=== PATIENT | male | born 1965 | race Caucasian/White ===

== ENCOUNTER 2024-05-27 08:32 | Outpatient (CLI) | payer OTHER, SELFPAY ==
--- NOTE | ~2024-05-27 | PE_ITS ---
EXAMINATION: PET skull to mid thigh DATE: 05/27/2024 11:52 INDICATION: Solitary pulmonary nodule TECHNIQUE: Blood glucose level was 84 mg/dL. 9.823 mCi of 18-fluorodeoxyglucose (18-FDG) was administ ered i.v. Low dose computed tomography (CT) images were acquired from the base of the brain to the pr oximal thighs for attenuation correction and anatomic localization. Positron emission tomography (PET ) images were acquired in the same distribution beginning 59 minutes after injection. Images includin g fused PET/CT images were reconstructed in axial, coronal, and sagittal planes. Automated exposure c ontrol technique was employed. The dose-length product was 764.52mGy-cm. COMPARISON: None FINDINGS: Head/neck: There is symmetric increased activity in the oral cavity, palatine tonsils, parotid glands, submandi bular glands, scalene muscles, laryngeal muscles and ocular muscles without CT correlate, likely phys iologic. No pathologically enlarged cervical lymphadenopathy or suspicious foci of increased FDG upta ke in the visualized head or neck. Chest: Severe upper lung predominant emphysema. 5 mm nodule in the posterior segment of the right upper lobe with minimal FDG uptake with maximal SUV of 1.3. 8 x 5 mm possible anterior segment of the right upp er lobe without evident FDG uptake. Linear discoid atelectasis in the lingula and right middle lobe. Heart size is normal. No pericardial effusion. Atherosclerotic coronary artery calcifications. Thorac ic aorta is normal in caliber. No pathologically enlarged or FDG avid thoracic lymphadenopathy. Abdomen/pelvis/proximal thighs: Physiologic renal accumulation and excretion of FDG activity in the kidneys, bladder and along portio ns of ureters. 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 Normal degree and heterogenous pattern of increased uptake throughout the liver without radiologi c correlate or dominant FDG avid lesion. The gallbladder, pancreas, spleen and bilateral adrenal glan ds are normal. Mild uptake scattered throughout the bowels without radiologic correlate, also likely physiologic. No free intraperitoneal gas or fluid. No other abnormal foci of increased FDG uptake or pathologically enlarged lymphadenopathy in the abdomen, pelvis or proximal thighs. Musculoskeletal: Internal fixation with plate and screw fixation along the proximal left humerus. There is likely infl ammatory mild FDG uptake in the soft tissues surrounding the tip of one of the fixation screws which projects beyond the humeral cortex. T10 and L3 compression fractures. S1 is partially lumbarized. The re is mild increased uptake overlying the bilateral greater trochanters consistent with trochanteric bursitis. There is mildly increased likely physiologic muscular activity without radiologic correlate at some of the musculature at the bilateral hips most prominent at the left quadratus femoris muscle . No discrete lytic, blastic or abnormally FDG avid bone lesions. IMPRESSION: 1. Minimal FDG uptake with maximal SUV of 1.3 associated with a 5 mm nodule in the right upper lobe w hich is equivocal for malignant, infectious or inflammatory etiology. Patient would not currently be a biopsy candidate given to small size of the nodule or if the patient requires supplemental oxygen a t baseline given the severity of the emphysema. Would recommend continued follow-up with low-dose non contrast chest CT in 3-6 months. 2. No other lesions suspicious for malignancy or metastatic disease. 3. Developmental variant horseshoe kidney. Reviewed, dictated and finalized at location A. IMPRESSION: 1. Minimal FDG uptake with maximal SUV of 1.3 associated with a 5 mm nodule in the right upper lobe which is equivocal for malignant, infectiou
[2024-05-27 09:30] LABS: Glucose Point of Care 84 mg/dl (65-105)
== END 2024-05-27 08:33 | disposition home or self-care (01) ==
LOC: ANHIMG 08:34
PROVIDERS: PCP Nurse Practitioner Family; Visit Provider Nurse Practitioner Family
DX: R91.1 Solitary pulmonary nodule (principal); Q63.1 Lobulated, fused and horseshoe kidney
CPT/HCPCS: 78815; A9552

== ENCOUNTER 2024-06-23 12:38 | Outpatient (CLI) | payer OTHER, SELFPAY ==
--- NOTE | 2024-06-23 13:54 | ECHO_ITS ---
Patient Info Name: Dario Pina Age: 58 years : 1965 Gender: Male Ht: 69 in Wt: 140 lbs BSA: 1.75 m2 HR: 70 bpm BP: 147 / 90 mmHg Heart Rhythm: Sinus Rhythm Technical Quality: Fair Exam Date: 06/23/2024 2:09 PM Exam Location: Echo Lab Patient Status: Outpatient Admit Date: 06/23/2024 Staff Ordering Physician: Sharon Vasquez MD Regional Safety Manager: Lucio Veras RDCS Attending Provider: Sharon Vasquez MD Referring Physician: Christina MARTINES; Exam Type: CA echo doppler color flow Study Info Indications - other forms of dyspnea Complete two-dimensional, color flow and Doppler transthoracic echocardiogram is performed. Summary 1. Complete two-dimensional, color flow and Doppler transthoracic echocardiogram is performed. 2. Left ventricular chamber dimension is normal. 3. Left ventricular systolic function is normal, estimated at 60-65%. 4. The left ventricular diastolic function is abnormal. 5. E/e' 13 is mildly elevated. 6. There is mild aortic valve sclerosis. 7. No pulmonary hypertension, estimated pulmonary arterial systolic pressure is 26 mmHg. Left Ventricle E/e' 13 is mildly elevated. Left ventricular chamber dimension is normal. Left ventricular systolic function is normal, estimated at 60-65%. The left ventricular diastolic function is abnormal. Right Ventricle Right ventricular systolic function is normal and with normal TAPSE 3.0 cm. Right ventricular chamber dimension is normal. Left Atria Left atrial chamber dimension is normal. Right Atria Right atrial chamber dimension is normal. Aortic Valve The aortic valve is probable trileaflet. There is mild aortic valve sclerosis. There is no aortic valve stenosis. There is no aortic valve regurgitation. Pulmonic Valve There is no pulmonic regurgitation. Mitral Valve There is no mitral valve stenosis. There is no mitral valve regurgitation. Tricuspid Valve There is no tricuspid valve regurgitation. No pulmonary hypertension, estimated pulmonary arterial systolic pressure is 26 mmHg. Pericardium/Pleural There is no pericardial effusion. Inferior Vena Cava Normal inferior vena cava with >50% collapse upon inspiration consistent with normal right atrial pressure, 5 mmHg. Aorta The aortic root size at the sinus of Valsalva is normal. Left Ventricular Outflow Tract Name Value Normal LVOT 2D LVOT Diameter 1.9 cm LVOT Doppler LVOT Peak Velocity 135 cm/s LVOT Peak Gradient 7 mmHg LVOT Mean Gradient 4 mmHg LVOT VTI 27 cm LVOT VTI/AV VTI Ratio 0.8 LVOT Stroke Volume 74 ml LVOT CO 5.6 l/min LVOT CI 3.2 l/min/m2 Pulmonic Valve Name Value Normal PV Doppler PV Peak Velocity 114 cm/s PV Peak G
--- NOTE | 2024-06-24 11:27 | WPDPFTINT ---
PFT Procedure Performed PFT Procedure Performed Spirometry with Pre/Post Bronchodilator Plethysmography (Lung Vol) Diffusing Cap (DLCO) Flow Vol Loop PFT Interpretation DOS: 06/23/2024 REQUESTING: Dr Vasquez REASON FOR TESTING: In PULMONARY FUNCTION TESTS Results are reliable and reproducible. Repeatability of spirometry FEV1 maneuver pre and post bronchodilator is Grade A. the cooking appliance repair technician commented that the patient had difficulty with plethysmography with 4 attempts. Spirometry: The pre-bronchodilator FEV1 is 0.93 L, 27%, severely decreased. The pre-bronchodilator FVC is 3.12 L, 70% predicted, mildly decreased. The FEV1/FVC ratio is 30%, decreased. After bronchodilator, the FEV1 is 1.02 L, 29%, +10% The FVC is 3.64 L, 81%, +17%. This is a significant response. The FEV1/FVC ratio is 28%. Lung volumes: The total lung capacity is 8.91 L, 132%, increased, consistent with hyperinflation. The residual volume is 5.53 L, 253%, consistent with severe air trapping. The RV/TLC is 62%, increased. Airway resistance is increased. Diffusion: DLCO is 6.9, 25%, severely decreased. The DLCO/VA is 1.46, 34%, severely decreased. Flow volume loop: The flow volume loop shows severe coving of the expiratory limb. IMPRESSION: This study shows a severe obstructive ventilatory impairment with a good response to bronchodilator, mild hyperinflation with severe air trapping and a severe diffusion impairment. Sharon Vasquez MD
--- NOTE | 2024-06-24 11:33 | WPDSIXMINUTE ---
Six Minute Walk Procedure Procedure Performed Pulmonary Stress Test (6 min walk) Six Minute Walk Six Minute Walk: DATE OF SERVICE: 06/23/2024 REQUESTING: Dr. Vasquez REASON FOR TESTING: Dyspnea SIX MINUTE WALK This test was conducted per ATS guidelines. The patient used oxygen 2 L a minute which is his usual home oxygen flow. He used a walking cane. The initial saturation was 92%, and initial heart rate was 79 beats per minute. The patient walked without stopping, completing 800 ft/243.8 m. The saturation at the end of testing was 92%, and the heart rate was 80 beats per minute. IMPRESSION: This study shows the patient requires 2 liters/minute with walking. Distance walked is less than expected for age. Sharon Vasquez MD
== END 2024-06-23 12:39 | disposition home or self-care (01) ==
LOC: ANHPFT 12:41
PROVIDERS: PCP Nurse Practitioner Family; Visit Provider Internal Medicine Critical Care Medicine
DX: R06.09 Other forms of dyspnea (principal); J44.9 Chronic obstructive pulmonary disease, unspecified; I51.89 Other ill-defined heart diseases; I35.8 Other nonrheumatic aortic valve disorders; F17.200 Nicotine dependence, unspecified, uncomplicated
CPT/HCPCS: 93306; 94060; 94726; 94729

== ENCOUNTER 2024-08-26 13:35 | Outpatient (CLI) | payer OTHER, SELFPAY ==
--- NOTE | ~2024-08-26 | CT_ITS ---
EXAMINATION:CT diagnostic chest wo con DATE: 08/26/2024 13:54 INDICATION: Pulmonary nodule. TECHNIQUE: Computed tomography (CT) of the chest was performed without intravenous contrast. Automate d exposure control and iterative reconstruction technique were employed. The dose-length product (DLP ) was 112.42 mGy-cm. COMPARISON: PET/CT 05/27/2024 FINDINGS: There is severe emphysema. There is a 6 mm nodule in right upper lobe. There is a 5 mm nodu le in left upper lobe. There is mild atelectasis bilaterally. There is no pleural effusion. The heart size is normal. There are coronary artery calcifications. There is a trace pericardial effusion. The re is internal fixation of left humerus. There are old left rib fractures. There are chronic compress ion fractures of T10 and L3. IMPRESSION: 1. Pulmonary nodules measuring up to 6 mm, probably benign. Consider noncontrast low-dose chest CT in 6-12 months. 2. Severe emphysema. Reviewed, dictated and finalized at location A. IMPRESSION: 1. Pulmonary nodules measuring up to 6 mm, probably benign. Consider noncontras t low-dose chest CT in 6-12 months. 2. Severe emphysema.
== END 2024-08-26 13:36 | disposition home or self-care (01) ==
PROVIDERS: PCP Nurse Practitioner Family; Visit Provider Internal Medicine Critical Care Medicine
DX: R91.8 Other nonspecific abnormal finding of lung field (principal); J43.9 Emphysema, unspecified; R91.1 Solitary pulmonary nodule
CPT/HCPCS: 71250

== ENCOUNTER 2024-11-23 10:52 | Outpatient (CLI) | payer OTHER, SELFPAY ==
--- NOTE | 2024-11-30 13:41 | WPDSLEEPSTUD ---
Sleep Study Date of Study: 11/23/24 Ordering Provider: Sharon Vasquez MD Interpreting Physician: Dinorah Mendoza DO Sleep Study Type: Polysomnogram Height: 1.73 m Weight: 74.843 kg Body Mass Index: 25.0 Neck Circumference (inches): 16 [place]: 15.5 Reason for Sleep Study Daytime hypersomnia Sleep History The patient is a 59-year-old male with COPD, oxygen dependence and bipolar disorder that had a sleep study ordered by his breaker hand for evaluation of sleep apnea. The patient constantly awakens from sleep short of breath. He denies awakening at night with heartburn, belching or cough. He frequently snores but is never loud enough that others complain. He frequently has trouble sleeping when he has a cold. He rarely wakes up gasping for air throughout the night. He frequently has breathing problems at night observed by himself or others. He frequently sweats excessively at night. He occasionally has heart palpitations or irregular heartbeats during the night. He occasionally falls asleep during the day but never while driving. He rarely experiences loss of muscle tone when extremely emotional. He denies sleep paralysis and hypnagogic/ hypnopompic hallucinations. He denies having trouble at school or work due to sleepiness. He denies feeling afraid of going to sleep. He denies having nightmares. He rarely remembers his dreams. He rarely has thoughts racing through his mind. He denies feeling sad or depressed. He frequently has anxiety. He occasionally has muscular tension. He occasionally notices parts of his body jerk. He denies kicking during the night. He rarely has crawling and aching feelings in his legs but occasionally has leg pain during the night. He denies grinding his teeth during sleep but occasionally awakens with morning jaw pain. He occasionally is bothered by pain during the day and occasionally awakened by pain during the night. He denies waking up feeling stiff in the morning. He denies waking up with sore or achy muscles. He denies waking up with pain in the neck, spine and other joints. He goes to bed at 10:00 p.m. on both weekdays and weekends. It takes him 15 minutes to fall asleep. He wakes up 2-3 times throughout the night to urinate and is able to fall back asleep relatively quickly. He wakes up at 4:00 a.m. on both weekdays and weekends. He typically gets 5-6 hours of sleep per night. he currently lives alone. He denies consuming any caffeinated beverages within 2 hours of bedtime. He denies engaging in physical exercise before bedtime. He will watch television before falling asleep. He will take naps in the afternoon or the evening and they are refreshing. He consumes 4 caffeinated beverages per day. He is a former smoker. He denies alcohol and recreational drug use. [facility] Past Medical History Medical History Anxiety Bipolar 1 disorder Chronic obstructive pulmonary disease Surgical History Surgical History History of surgery on arm (2016) left; has a metal plate in this arm, 2016 Family History Family History Father Hypertension Cerebrovascular accident Heart disease Mother Cerebrovascular accident Hypertension Alzheimer disease Sibling Alcoholism Diabetes mellitus Depression Hypertension Thyroid disorder Grandparent Alzheimer disease Grandparent Hypertension Heart disease Social History Social History Social History: Single, lives alone, sister is is POA for healthcare. Smoked since age 11, 2 ppd x 20 years, the remained 1 ppd= 60 pack year history. Smoked cigarillos a pack/day for a few years. No marijuana or vaping now. He has no kids. 08/13/24 patient somewhat confident with medical forms. Smoking packs per day: 0.25 Smoking cigarettes per day: 5.0 Smoking status: Current some day smoker Alcohol intake: former Alcohol use details: Quit 30 years ago, about 1993, was a heavy drinker. Substance use: never Substance use type: does not use Other substance usage details: no MJ for 18 years, quit 2005 Do You Feel Safe in your Home?: Yes Lack of Transportation: No Lack of Food: Never True Current Housing: I Have Housing Concerned About Future Housing: No Difficulty Paying Gas/Electric Bills: No Difficulty Paying for Meds: YES Currently Unemployed: No Education: Trade/Vocational Certificate Difficulty w/ Childcare or Family Care: No Living arrangements: alone Additional living arrangements comments: No pets. Occupation/Education: occupation Additional occupation/education comments: Maintenance at [employer] Gender identity (if verbalized by the patient): Male Agree to blood products: Yes Medications Home Medications ?Medication ?Instructions ?Recorded ?Confirmed ?Type olanzapine 10 mg tablet 10 mg PO DAILY #90 tabs 04/24/23 09/29/24 Rx paroxetine HCl 40 mg tablet (Paxil) 40 mg PO DAILY #90 tabs 04/24/23 09/29/24 Rx tiotropium bromide 18 mcg capsule 1 cap inhalation DAILY 1 month #60 07/22/24 09/29/24 Rx with inhalation device inhalations nicotine See Rx Instructions transdermal 08/16/24 09/29/24 Rx 21mg/24hr-14mg/24hr-7mg/24hr daily .COMPLEX #56 patches transderm patches,sequentl bupropion HCl 300 mg 24 hr tablet, 300 mg PO DAILY #90 tabs 08/20/24 09/29/24 Rx extended release sertraline 50 mg tablet 50 mg PO DAILY 09/29/24 09/29/24 History fluticasone 250 mcg-salmeterol 50 See Rx Instructions .Route 10/29/24 Rx mcg/dose blistr powdr for .COMPLEX #60 ea inhalation rosuvastatin 5 mg tablet (Crestor) 5 mg PO .HS #90 tabs 11/18/24 Rx albuterol sulfate 90 mcg/actuation See Rx Instructions .Route 11/30/24 Rx aerosol inhaler .COMPLEX #9 grams Sleep Procedure A full night polysomnogram using the [employer] multi-channel system recorded the standard physiologic parameters including EEG, EOG, submentalis EMG, anterior tibialis EMG, EKG, body position, nasal and oral airflow using nasal pressure sensor and thermistor.? Respiratory parameters of chest and abdominal movements were recorded with Respiratory Inductance Plethysmography belts. Oxygen saturation was recorded by pulse oximetry. Video monitoring was also performed. Sleep stages, periodic limb movements, and EEG arousals were scored in 30 second epochs according to the criteria of the AASM Scoring Manual. The Apnea-Hypopnea Index was calculated using [facility] guidelines for definition of hypopnea with 4% O2 desaturations while scoring respiratory events. Sleep Architecture The total recording time was 541.1 minutes.? The total sleep time was 395.5 minutes. Sleep latency was 29.4 minutes. REM latency was 204.0 minutes. Sleep efficiency was 73.1%. The patient had 29 awakenings for an awakening index of 4.4. Wake after sleep onset time was 116.0 minutes. The patient spent 35.5 minutes, 9.0% of total sleep time in Stage N1. The patient spent 277.0 minutes, 70.0% in Stage N2. The patient spent 46.5 minutes, 11.8% in Stage N3. The patient spent 36.5 minutes, 9.2% in Stage REM sleep. Respiratory Analysis The patient had 2 hypopneas and 1 central apnea for an overall Apnea Hypopnea Index of 0.5. The REM Apnea Hypopnea Index was 9.9. The NREM Apnea Hypopnea Index was 0.5. The patient had a Central Apnea Hypopnea Index of 0.2. There was no evidence of Karthik-Richards Respirations. The patient had persistent hypoxemia in the absence of respiratory events. The patient was started on 1 lpm of supplemental oxygen to raise the SpO2 > 88%. Arousals There were 109 total arousals for an arousal index of 16.5. There were 41 spontaneous arousals for an index of 6.2. There were 6 arousals due to respiratory events for an index of 0.9. There were 38 arousals due to periodic limb movements for an index of 5.8.? There were 18 arousals due to isolated limb movements for an index of 2.7. Periodic Limb Movements The patient had 26 isolated limb movements with an index of 3.9. The patient had 230 periodic limb movements with an index of 34.9, which is elevated (normal < 15). Patient had a total of 256 limb movements with a total limb movement index of 38.8. Oximetry Data The patient had an average oxygen saturation of 91.3% in sleep with a minimum oxygen saturation of 84.0% and a maximum oxygen saturation of 97.0%. The patient had 2 oxygen desaturations that were 4% or greater resulting in an Oxygen Desaturation Index of 0.3.? The patient spent 83.9 minutes, 15.8% of total sleep time with an oxygen saturation below 88%. Snoring Profile Snoring was not present during this study. Cardiac Profile The EKG showed normal sinus rhythm. No arrhythmias or premature beats were seen. The patient had an average pulse rate of 66.1 bpm with a minimum pulse of rate of 59.0 bpm and a maximum pulse rate of 150.0 bpm.? EEG Profile No signs of seizure activity seen. Assessment and Plan Assessment and Plan (1) Nocturnal hypoxemia: Code(s): G47.34 - Idiopathic sleep related nonobstructive alveolar hypoventilation Status: Acute Assessment and Plan: The patient wears supplemental oxygen at all times. He came into the sleep lab using 2 lpm of O2. He was weaned down to room air at the beginning of the study. The patient had an overall AHI of 0.5 with desaturation down to 84%. This is not consistent with sleep-disordered breathing. However, supplemental oxygen at 1 lpm was started due to persistent hypoxemia in the absence of respiratory events. His oxygen saturation remained above 92% while on 1 lpm. I recommend that the patient use supplemental oxygen at 1 lpm while sleeping. While the patient had an elevated number of periodic limb movements, the frequency decreased significantly once the patient was started on supplemental oxygen. Data The data obtained during this sleep study is adequate for interpretation. Certification This sleep study has been reviewed by a board certified sleep medicine physician.
[2024-12-01 13:09] VITALS: BMI 25.0
== END 2024-11-24 06:35 | disposition home or self-care (01) ==
PROVIDERS: PCP Nurse Practitioner Family; Visit Provider Internal Medicine Critical Care Medicine
DX: G47.34 Idiopathic sleep related nonobstructive alveolar hypoventilation (principal); G47.10 Hypersomnia, unspecified
CPT/HCPCS: 95810

== ENCOUNTER 2025-02-18 10:36 | Outpatient (CLI) | payer OTHER, SELFPAY ==
--- NOTE | ~2025-02-18 | CT_ITS ---
CT Scan of the Chest without Contrast: Clinical Indication: Nodules Technique: Contiguous sections were acquired throughout the chest without intravenous contrast. Dose reduction technique was used on this scan by utilizing automated exposure control and iterative recon struction technique. The dose-length product (DLP) was 204.99 mGy-cm. COMPARISON: 08/26/2024 Findings: There is no evidence of any significant mediastinal, hilar or axillary lymphadenopathy. The mediastin al soft tissues appear normal. There is no evidence of pleural or pericardial effusion. Severe emphysema is unchanged. Stable 6 mm nodule in the anterior right upper lobe (axial image 73). Stable probable scarring in the right middle lobe and lingula. Images through the upper abdomen reveal no abnormalities. Moderate to severe T10 compression fracture present, unchanged. Impression: Severe emphysema. Stable right upper lobe pulmonary nodule. No new or enlarging pulmonary nodule seen. Reviewed, dictated and finalized at [facility]. Impression: Severe emphysema. Stable right upper lobe pulmonary nodule. No new or enlarging pulmonary nodule seen.
--- OUTSIDE RECORDS SUMMARY | 2025-02-18 11:11 | XMS_ITS ---
Author Organization [facility] Address [address] [place] [address] Care Team Providers Care Slasher Hand Name Role Phone Ravinder Rodriguez Primary Care Provider Leah Gaona [phone] REASON FOR VISIT therapy Social History Sex Assigned At : Social History Observation Description Sex Assigned At Male Encounters Encounter Location Date Provider Diagnosis [facility] [place] [place] [address] 01/11/2025 Leah Gaona Bipolar 1 disorder F31.9 and PTSD (post-traumatic stress disorder) F43.10 Assessments Encounter Date Diagnosis (ICD Code) Assessment Notes Treatment Notes Treatment Clinical Notes Section Notes 01/11/2025 Bipolar 1 disorder (ICD-10 - F31.9) 01/11/2025 PTSD (post-traumatic stress disorder) (ICD-10 - F43.10) Plan Of Treatment Next Appt Details Follow Up: 2 Weeks, Reason: therapy Provider Name:Leah mullen, 02/22/2025 01:00:00 PM, [address], [place], [address], Provider Name:Ravinder rob, 02/24/2025 12:20:00 PM, [address], [place], [address], Progress Notes * Dario BELLDOB:1964 (59 yo M)Acc No.[id number]:01/11/2025 Patient: Dario QUAN Provider: Neil Gaona LCSW :1965 A ge:59 Y S ex:Male Date:01/11/2025 Address:[address] [place] [address] [id number] Pcp:Ravinder Rodriguez Subjective: * Chief Complaints: * T herapy * HPI: B ehavioral Health Treatment: Patient is seeking services. C linician met with ct for session (utilizing precautions (telehealth)) - providing individual therapy. Utilized CBT approach: active listening, validation - along with facilitating feedback & introspection skills ct is working on. Acknowledged insights with patterns & interpersonal skills, re-framed, along with acknowledging growth (working on changes in behaviors/responses with factors in relationship & self). Ct reflected on patterns of thoughts/feelings, focusing on healthier changes he can adjust/made in responses to continue to focus on his growth (interpersonal, relationship, and self). Ct acknowledged areas that could help (identifying ways in which he can become more social), barriers (physcial and mental symptoms that create a feeling of isolation), and supported middle ground areas. S creening: [place] Suicide Severity Rating Scale (LF) D o you want to initiate with S creener form 1 . Wish to be : Have you wished you were or wished you could go to sleep and not wake up? Y es 2 . Suicidal Thoughts: Have you actually had any thoughts of killing yourself? N o 6 . Suicide Behavior Question: Have you ever done anything,started to do anything, or prepared to end your life? N o I nterpretation: L ow Risk * Medical History: * Medications: Objective: * Examination: G eneral Examination: C t presented through telehealth oriented, engaged in session. He reflected on factors in his relationships - old/previous pattern of his (he isolated himself from others, creating a negative self-image) with changes (engaging in healthy social interactions). Ct acknowledged pieces/factors of healthy insight & changes he'd like to implement as he moves forward (plan: to identify healthy social engagements that he could participate in to create healthy social connectedness). Assessment: * Assessment: 1. B ipolar 1 disorder - F31.9 2 . P TSD (post-traumatic stress disorder) - F43.10 [place] V:Pt will continue medi cations as prescribed and will continue therapy to develop goals and manage symptoms. Plan: * Treatment: * Procedure Codes: 9 0832 PSYTX PT&/FAMILY 30 MINUTES, Modifiers: AJ * Follow Up: 2 Weeks (Reason: therapy) * Care Plan Details* * ER OFF Sign off status: Completed true * Provider: Neil Gaona LCSW Date: 0 01/11/2025 Generated for Lani booth/Bautista/Ravinder on: 0 02/18/2025 11:11 AM CDT History and Physical Notes * HPI (History of Present Illness) Category Sub-Category Detail Notes Category Not es Screening [place] Suicide Sev erity Rating Scale (LF) Do you want to initiate with: Screener form 1. Wish to be : Have you wished you were or wished you could go to sleep and not wake up?: Yes 2. Suicidal Thoughts: Have you actually had any thoughts of killing yourself?: No 6. Suicide Behavior Question: Have you ever done anything,started to do anything, or prepared to end your life?: No Interpretation:: Low Risk Examination Category Sub-Category Detail Notes Category Not es General Examination Ct prese nted through telehealth oriented, engaged in session. He reflected on factors in his relationships - old/previous pattern of his (he isolated himself from others, creating a negative self-image) with changes (engaging in healthy social interactions). Ct acknowledged pieces/factors of healthy insight & changes he'd like to implement as he moves forward (plan: to identify healthy social engagements that he could participate in to create healthy social connectedness).
--- OUTSIDE RECORDS SUMMARY | 2025-02-18 11:11 | XMS_ITS | Clinical Summary ---
Author Organization [facility] Address [address] [place] [address] Care Team Providers Care Whale Fisherman Name Role Phone Unknown, Provider Primary Care Provider Unavaila ble Source Comments [facility],non-owned Affiliates and Associated Physician Practices is amultiple site organization consisting of ambulatory clinics and hospital sitesin [place], [place], [place] and [place]. This disclosure is being madepursuant to the Care Everywhere program and may not contain all information available regarding this patient. Last updated 18.[facility] Social History Tobacco Use Types Packs/Day Years Used Date Smoking Tobacco: Never Assessed Sex and Gender Information Value Date Recorded Sex Assigned at Not on file Gender Identity Not on file Sexual Orientation Not on file Last Filed Vital Signs Vital Sign Reading Time Taken Comments Blood Pressure 121/81 03/30/2017 8:09 AM CDT Pulse 67 03/30/2017 8:09 AM CDT Temperature 36.3 C (97.3 F) 03/30/2017 8:09 AM CDT Respiratory Rate 16 03/30/2017 8:09 AM CDT Oxygen Saturation 95% 03/30/2017 8:09 AM CDT Inhaled Oxygen Concentration - - Weight 72.1 kg (159 lb) 11/13/2017 8:43 AM BRAND ACTIVATION MANAGER Height 170.2 cm (5' 7 ) 11/13/2017 8:43 AM BRAND ACTIVATION MANAGER Body Mass Index 24.9 11/13/2017 8:43 AM BRAND ACTIVATION MANAGER Plan of Treatment Health Maintenance Due Date Last Done Comments COLOGUARD (AGES 45-75) - COL ON CA SCREENING 1965 COLON MONITORING 1965 COLONOSCOPY - COLON CA SCREENING 1965 [address] COLONOGRAPHY - COLON CA SCREENING 1965 Colorectal Cancer Screening 1965 FIT - COLON CA SCREENING 1965 FLEX SIG - COLON CA SCREENING 1965 LIPID TESTING 1965 HIV SCREENING 1978 HEPATITIS C SCREENING 08/18/1981 DTAP/TDAP/TD VACCINES (1 - Tdap) 1982 PNEUMOCOCCAL VACCINE 50+ (1 of 1 - PCV) 2013 ZOSTER VACCINE (1 of 2) 2013 COVID-19 VACCINE (1 - 2023-2 5 season) 2024 DEPRESSION SCREENING 11/10/2024 INFLUENZA VACCINE (Season Ended) 2025 08/27/20 16 Respiratory Syncytial Virus (RSV) Vaccine Pt: or over 60 yrs (1 - 1-dose 75+ series) 2038 HEPATITIS B VACCINE Aged Out No longe r eligible based on patient's age to complete this topic HIB VACCINE Aged Out No longer eligi ble based on patient's age to complete this topic HPV VACCINE Aged Out No longer eligi ble based on patient's age to complete this topic MENINGOCOCCAL (Group B) VACC INE SHARED DECISION-MAKING Aged Out No longer eligibl e based on patient's age to complete this topic MENINGOCOCCAL GROUPS A/C/Y/W VACCINE Aged Out No longer eligible b ased on patient's age to complete this topic PNEUMOCOCCAL VACCINE Aged Out No long er eligible based on patient's age to complete this topic Care Teams Whale Fisherman Relationship Specialty Start Date End Date Unknown, Provider PCP - General 04/27/18
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
--- OUTSIDE RECORDS SUMMARY | 2025-02-18 11:11 | XMS_ITS ---
Author Organization Formerly [facility] Address [address] [place] [address] Care Team Providers Care Copy Coordinator Name Role Phone Ravinder Rodriguez Primary Care Provider Leah Gaona [phone] REASON FOR VISIT therapy Social History Sex Assigned At : Social History Observation Description Sex Assigned At Male Encounters Encounter Location Date Provider Diagnosis [facility] [place] [address] [place] [address] 01/25/2025 Leah Gaona Bipolar 1 disorder F31.9 and PTSD (post-traumatic stress disorder) F43.10 Assessments Encounter Date Diagnosis (ICD Code) Assessment Notes Treatment Notes Treatment Clinical Notes Section Notes 01/25/2025 Bipolar 1 disorder (ICD-10 - F31.9) 01/25/2025 PTSD (post-traumatic stress disorder) (ICD-10 - F43.10) Plan Of Treatment Next Appt Details Follow Up: 2 Weeks, Reason: therapy Provider Name:Leah mullen, 02/22/2025 01:00:00 PM, [address], [place], [address], Provider Name:Ravinder rob, 02/24/2025 12:20:00 PM, [address], [place], [address], Progress Notes * Dario BELLDOB:1964 (59 yo M)Acc No.[id number]:01/25/2025 Patient: Dario QUAN Provider: Neil Gaona LCSW :1965 A ge:59 Y S ex:Male Date:01/25/2025 Address:[address] [place] [address] [id number] Pcp:Ravinder Rodriguez Subjective: * Chief Complaints: * [...] self). Ct acknowledged areas that could help (engaging in healthy activities outside of his home), barriers (some decreased mobility due to lung issues), and supported middle ground areas. S creening: Hardeman Suicide Severity Rating Scale (LF) D o [...] relationships - old/previous pattern of his (he tended to isolate self in home) with changes (engaging in healthy activities outside of his home). Ct acknowledged pieces/factors of healthy insight & changes he'd like to implement as he moves forward (plan: to located 2-3 activities outside of his home to discuss during next appointment to plan next steps in attending these activities ) . Assessment: * Assessment: 1. B ipolar 1 disorder - F31.9 2 . P TSD (post-traumatic stress disorder) - F43.10 [place] V:Pt will continue medi cations as prescribed and will continue therapy to develop goals and manage symptoms. Plan: * Treatment: * Procedure Codes: 9 0834 TELE PSYTX PT&/FAMILY 45 MINUTES, Modifiers: AJ , 95 * Follow Up: 2 Weeks (Reason: therapy) * Care Plan Details* * Sign off status: Completed true * Provider: Neil Gaona LCSW Date: 0 01/25/2025 Generated for Lani booth/Bautista/Ravinder on: 0 02/18/2025 11:10 AM CDT History and Physical Notes * HPI (History of Present Illness) Category Sub-Category Detail Notes Category Not es Screening Hardeman Suicide Sev erity Rating Scale (LF) Do [...] relationships - old/previous pattern of his (he tended to isolate self in home) with changes (engaging in healthy activities outside of his home). Ct acknowledged pieces/factors of healthy insight & changes he'd like to implement as he moves forward (plan: to located 2-3 activities outside of his home to discuss during next appointment to plan next steps in attending these activities ).
--- OUTSIDE RECORDS SUMMARY | 2025-02-18 11:11 | XMS_ITS | Clinical Summary ---
Author Organization [facility] Address [facility] [place] [address] Care Team Providers Care Airport Electrician Name Role Phone Sharon Vasquez MD Primary Care Provider [phone] Allergies No known active allergies Medications albuterol sulfate HFA 108 (90 Base) MCG/ACT inhaler 12/21/2023 Act carmita fluticasone-salm eterol (ADVAIR DISKUS) 500-50 MCG/ACT inhaler Inhale into the lungs every 12 (twelve) hours. 12/13/2023 Active PARoxetine (PAXIL) 40 MG tablet Take 1 tablet (40 mg total) by mouth every morning. FOR 14 DAYS 04/14/2024 Active OLANZapine (ZYPREXA) 20 MG tablet Take 1 tablet (20 mg total) by mouth daily. 04/14/2024 Active buPROPion XL (WELLBUTRIN XL) 300 MG 24 hr tablet Take 1 tablet (300 mg total) by mouth daily. 04/20/2024 Active Active Problems Problem Noted Date Diagnosed Date Acute respiratory failure with hypoxia (CMS/HCC HHS/HCC) 04/28/2024 Hx of colonic polyps 12/24/2023 Resolved Problems Problem Noted Date Diagnosed Date Resolved Date Screening for colon cancer 12/24/2023 0 12/29/2023 Encounters Date Type Department Care Team Description 01/18/2025 7:25 AM CDT - 01/18/2025 11:59 PM CDT Hospital Encounter [facility] [address] [place] [address] Sharon Vasquez MD Discharge Disposition: Home or Self Care (Routine Discharge) 01/18/2025 Travel 01/17/2025 7:30 AM CDT - 01/17/2025 11:59 PM CDT Hospital Encounter [facility] [address] [place] [address] Sharon Vasquez MD Discharge Disposition: Home or Self Care (Routine Discharge) 01/17/2025 Travel 01/13/2025 7:28 AM RETAIL CLIENT SOLUTIONS CONSULTANT - 01/13/2025 11:59 PM RETAIL CLIENT SOLUTIONS CONSULTANT Hospital Encounter [facility] [id number] [place] [address] Sharon Vasquez MD Discharge Disposition: Home or Self Care (Routine Discharge) 01/13/2025 Travel 01/11/2025 7:20 AM RETAIL CLIENT SOLUTIONS CONSULTANT - 01/11/2025 11:59 PM RETAIL CLIENT SOLUTIONS CONSULTANT Hospital Encounter [facility] [address] [place] [address] Sharon Vasquez MD Discharge Disposition: Home or Self Care (Routine Discharge) 01/11/2025 Travel 01/10/2025 7:35 AM RETAIL CLIENT SOLUTIONS CONSULTANT - 01/10/2025 11:59 PM RETAIL CLIENT SOLUTIONS CONSULTANT Hospital Encounter [facility] [address] [place] [address] Sharon Vasquez MD Discharge Disposition: Home or Self Care (Routine Discharge) 01/10/2025 Travel 01/06/2025 7:31 AM RETAIL CLIENT SOLUTIONS CONSULTANT - 01/06/2025 11:59 PM RETAIL CLIENT SOLUTIONS CONSULTANT Hospital Encounter [facility] [address] [place] [address] Sharon Vasquez MD Discharge Disposition: Home or Self Care (Routine Discharge) 01/06/2025 Travel 01/04/2025 7:29 AM RETAIL CLIENT SOLUTIONS CONSULTANT - 01/04/2025 11:59 PM RETAIL CLIENT SOLUTIONS CONSULTANT Hospital Encounter [facility] [address] [place] [address] Sharon Vasquez MD Discharge Disposition: Home or Self Care (Routine Discharge) 01/04/2025 Travel 01/03/2025 7:35 AM RETAIL CLIENT SOLUTIONS CONSULTANT - 01/03/2025 11:59 PM RETAIL CLIENT SOLUTIONS CONSULTANT Hospital Encounter [facility] [address] [place] [address] Sharon Vasquez MD Discharge Disposition: Home or Self Care (Routine Discharge) 01/03/2025 Travel 12/30/2024 7:25 AM RETAIL CLIENT SOLUTIONS CONSULTANT - 12/30/2024 11:59 PM RETAIL CLIENT SOLUTIONS CONSULTANT Hospital Encounter [facility] [address] [place] [address] Sharon Vasquez MD Discharge Disposition: Home or Self Care (Routine Discharge) 12/30/2024 Travel 12/27/2024 7:27 AM RETAIL CLIENT SOLUTIONS CONSULTANT - 12/27/2024 11:59 PM RETAIL CLIENT SOLUTIONS CONSULTANT Hospital Encounter [facility] [address] [place] [address] Sharon Vasquez MD Discharge Disposition: Home or Self Care (Routine Discharge) 12/27/2024 Travel 12/23/2024 7:20 AM RETAIL CLIENT SOLUTIONS CONSULTANT - 12/23/2024 11:59 PM RETAIL CLIENT SOLUTIONS CONSULTANT Hospital Encounter [facility] [address] [place] [address] Sharon Vasquez MD Discharge Disposition: Home or Self Care (Routine Discharge) 12/23/2024 Travel 12/20/2024 7:22 AM RETAIL CLIENT SOLUTIONS CONSULTANT - 12/20/2024 11:59 PM RETAIL CLIENT SOLUTIONS CONSULTANT Hospital Encounter [facility] [address] [place] [address] Sharon Vasquez MD Discharge Disposition: Home or Self Care (Routine Discharge) 12/20/2024 Travel 12/16/2024 7:28 AM RETAIL CLIENT SOLUTIONS CONSULTANT - 12/16/2024 11:59 PM RETAIL CLIENT SOLUTIONS CONSULTANT Hospital Encounter [facility] [address] [place] [address] Sharon Vasquez MD Discharge Disposition: Home or Self Care (Routine Discharge) 12/16/2024 Travel 12/14/2024 7:33 AM RETAIL CLIENT SOLUTIONS CONSULTANT - 12/14/2024 11:59 PM RETAIL CLIENT SOLUTIONS CONSULTANT Hospital Encounter [facility] [address] [place] [address] Sharon Vasquez MD Discharge Disposition: Home or Self Care (Routine Discharge) 12/14/2024 Travel 12/13/2024 7:30 AM RETAIL CLIENT SOLUTIONS CONSULTANT - 12/13/2024 11:59 PM RETAIL CLIENT SOLUTIONS CONSULTANT Hospital Encounter [facility] [address] [place] [address] Sharon Vasquez MD Discharge Disposition: Home or Self Care (Routine Discharge) 12/13/2024 Travel 12/09/2024 7:31 AM RETAIL CLIENT SOLUTIONS CONSULTANT - 12/09/2024 11:59 PM RETAIL CLIENT SOLUTIONS CONSULTANT Hospital Encounter [facility] [address] [place] [address] Sharon Vasquez MD Discharge Disposition: Home or Self Care (Routine Discharge) 12/09/2024 Travel 12/07/2024 7:28 AM RETAIL CLIENT SOLUTIONS CONSULTANT - 12/07/2024 11:59 PM RETAIL CLIENT SOLUTIONS CONSULTANT Hospital Encounter [facility] [address] [place] [address] Sharon Vasquez MD Discharge Disposition: Home or Self Care (Routine Discharge) 12/07/2024 Travel 12/06/2024 7:35 AM RETAIL CLIENT SOLUTIONS CONSULTANT - 12/06/2024 11:59 PM RETAIL CLIENT SOLUTIONS CONSULTANT Hospital Encounter [facility] [address] [place] [address] Sharon Vasquez MD Discharge Disposition: Home or Self Care (Routine Discharge) 12/06/2024 Travel 12/02/2024 7:35 AM RETAIL CLIENT SOLUTIONS CONSULTANT - 12/02/2024 11:59 PM RETAIL CLIENT SOLUTIONS CONSULTANT Hospital Encounter [facility] [address] [place] [address] Sharon Vasquez MD Discharge Disposition: Home or Self Care (Routine Discharge) 12/02/2024 Travel 11/30/2024 7:32 AM RETAIL CLIENT SOLUTIONS CONSULTANT - 11/30/2024 11:59 PM RETAIL CLIENT SOLUTIONS CONSULTANT Hospital Encounter [facility] [address] [place] [address] Sharon Vasquez MD Discharge Disposition: Home or Self Care (Routine Discharge) 11/30/2024 Travel 11/29/2024 7:37 AM RETAIL CLIENT SOLUTIONS CONSULTANT - 11/29/2024 11:59 PM RETAIL CLIENT SOLUTIONS CONSULTANT Hospital Encounter [facility] [id number] [place] [address] Sharon Vasquez MD Discharge Disposition: Home or Self Care (Routine Discharge) 11/29/2024 Travel 11/25/2024 7:43 AM RETAIL CLIENT SOLUTIONS CONSULTANT - 11/25/2024 11:59 PM RETAIL CLIENT SOLUTIONS CONSULTANT Hospital Encounter [facility] [id number] [place] [address] Sharon Vasquez MD Discharge Disposition: Home or Self Care (Routine Discharge) 11/25/2024 Travel 11/23/2024 7:26 AM RETAIL CLIENT SOLUTIONS CONSULTANT - 11/23/2024 11:59 PM RETAIL CLIENT SOLUTIONS CONSULTANT Hospital Encounter [facility] [id number] [place] [id number] Sharon Vasquez MD Discharge Disposition: Home or Self Care (Routine Discharge) 11/23/2024 Travel 11/22/2024 7:35 AM RETAIL CLIENT SOLUTIONS CONSULTANT - 11/22/2024 11:59 PM RETAIL CLIENT SOLUTIONS CONSULTANT Hospital Encounter [facility] [address] [place] [address] Sharon Vasquez MD Discharge Disposition: Home or Self Care (Routine Discharge) 11/22/2024 Travel from Last 3 Months Immunizations Name Administration Dates Next Due Influenza (Generic) 07/31/2023 Pneumococcal (Prevnar 20) 03/06/2022 Shingrix 05/20/2022,03/06/2022 Tdap (Adacel) 08/25/2016 Family History Medical History Relation Comments Heart Disease Father Hyperlipidemia Father Hypertension Father Alzheimer's disease Mother Relation Status Comments Father Mother Social History Tobacco Use Types Packs/Day Years Used Date Smoking Tobacco: Every Day Cigarettes 1 49.3 Started: 1975 Passive Smoke Exposure: Current Smokeless Tobacco: Never Alcohol Use Standard Drinks/Week Comments Not Currently 0 (1 standard drink = 0.6 oz pure alcohol) Quit 30yrs ago, but was a heavy drinker B1300 Health Literacy Answer Date Recor ded How often do you need to hav e someone help you when you read instructions, pamphlets, or other written material from your doctor or pharmacy? Never 04/28/2024 [facility] Utilities Answer Date Recorded In the past 12 months has e [employer], [employer], oil, or water [employer] threatened to shut off services in your home? No 04/28/2024 Humiliation, Afraid, Rape, and Kick questionnair e Answer Date Recorded Within the last year, have y ou been afraid of your partner or ex-partner? No 04/28/2024 Within the last year, have y ou been humiliated or emotionally abused in other ways by your partner or ex-partner? No Within the last year, have y ou been kicked, hit, slapped, or otherwise physically hurt by your partner or ex-partner? No 04/28/2024 Within the last year, have y ou been raped or forced to have any kind of sexual activity by your partner or ex-partner? No 04/28/2024 Social Connection and Isolation Panel [NHANES] A nswer Date Recorded In a typical week, how many times do you talk on the phone with family, friends, or neighbors? Never 04/28/2024 How often do you get together with friends or re latives? Never 04/28/2024 How often do you attend jainism or yarsani serv ices? Never 04/28/2024 Do you belong to any clubs o r organizations such as jainism groups, unions, fraternal or athletic groups, or school groups? No 04/28/2024 How often do you attend meet ings of the clubs or organizations you belong to? Never 04/28/2024 Are you , , di vorced, , never , or living with a partner? 04/28/2024 AUDIT-C Answer Date Recorded Q1: How often do you have a drink containing alcohol? Never 04/28/2024 Q2: How many drinks containi ng alcohol do you have on a typical day when you are drinking? Patient does not drink 4 Q3: How often do you have si x or more drinks on one occasion? Never 04/28/2024 Overall Financial Resource Strain (CARDIA) Answe r Date Recorded How hard is it for you to pa y for the very basics like food, housing, medical care, and heating? Somewhat hard 04/28/2024 PHQ-2 Answer Date Recorded Patient Health Questionnaire-2 Score 0 04/28/2024 [facility] - Occupational Stress Questionnaire Answer Date Recorded Do you feel stress - tense, restless, nervous, or anxious, or unable to sleep at night because your mind is troubled all the time - these days? Only a little 04/28/2024 Exercise Vital Sign Answer Date Recorde d On average, how many days pe r week do you engage in moderate to strenuous exercise (like a brisk walk)? 0 days 04/28/2024 On average, how many minutes do you engage in exercise at this level? 0 min 04/28/2024 Hunger Vital Sign Answer Date Recorded Within the past 12 months, y ou worried that your food would run out before you got the money to buy more. Never true 04/28/20 24 Within the past 12 months, t he food you bought just didn't last and you didn't have money to get more. Never true 04/28/2024 PRAPARE - Transportation Answer Date Re corded In the past 12 months, has l ack of transportation kept you from medical appointments or from getting medications? No 04/10 In the past 12 months, has l ack of transportation kept you from meetings, work, or from getting things needed for daily living? No 04/28/2024 Housing Stability Vital Sign Answer Trevor e Recorded In the last 12 months, was t here a time when you were not able to pay the mortgage or rent on time? No 04/28/2024 In the past 12 months, how m any times have you moved where you were living? 0 04/28/2024 At any time in the past 12 m [facility], were you homeless or living in a [facility] (including now)? No 04/28/2024 Sex and Gender Information Value Date Recorded Sex Assigned at Male 04/28/2024 3:44 PM CDT Legal Sex Male 4:24 PM CDT Gender Identity Male 04/28/2024 3:44 PM CDT Sexual Orientation Straight 04/28/2024 3: 44 PM CDT Last Filed Vital Signs Vital Sign Reading Time Taken Comments Blood Pressure 141/82 05/03/2024 11:18 AM CDT Pulse 93 05/03/2024 11:18 AM CDT Temperature 36.2 C (97.2 F) 05/03/2024 11:18 AM CDT Respiratory Rate 18 05/03/2024 11:1 8 AM CDT Oxygen Saturation 88% 05/03/2024 11: 18 AM CDT Patient did not have oxygen on when I entred the room, stated I do not need it on when I am lying around . Inhaled Oxygen Concentration - - Weight 60 kg (132 lb 4.4 oz) 05/03/2024 3:00 AM CDT Height 175.3 cm (5' 9 ) 04/28/2024 9:02 AM CDT Body Mass Index 19.53 04/28/2024 9:02 AM CDT Plan of Treatment Health Maintenance Due Date Last Done Comments Annual Physical 1966 Hepatitis C 1981 Lung Cancer Screening 05/15/2024 05/15/2023 , 08/17/2021 COVID-19 Vaccine (2023-2 5 season) 2024 10/08/2021, 02/12/2021, 01/22/2021 PHQ-2 (Physician [place]) 11/10/2024 04/28/2024 DTaP, Tdap and Td Vaccines ( 2 - Td or Tdap) 08/25/2026 08/25/2016 Colorectal Cancer Screening Colonoscopy (10 Years) 02/04/2034 02/05/2024, 02/05/2024 RSV Immunization or 60+ Years (1 - 1-dose 75+ series) 2038 Pneumococcal Vaccine: Pediatrics (0 to 5 Years) and At-Risk Patients (6 to 64 Years) Completed 03/06/2022 Zoster Vaccines Completed 05/20/2022, 03/06/2022 Meningococcal B Vaccine Aged Out No l onger eligible based on patient's age to complete this topic Meningococcal Vaccine Aged Out No myles last eligible based on patient's age to complete this topic RSV Immunizations Under 20 Months Aged Out No longer eligible b ased on patient's age to complete this topic Procedures Procedure Name Priority Date/Time Associated Diagnosis Comments COLONOSCOPY Routine 02/05/2024 11:[address] CHEST W CON Routine 05/15/2023 10:02 AM CDT Pulmonary nodule COPD (chronic obstructive pulmonary disease) from Last 3 Months or Most Recently Relevant to Health Maintenance Results * CT CHEST W CON (05/15/2023 10:02 AM CDT) Anatomical Region Laterality Modality Chest Computed Tomogra phy 05/18/2023 11:2 1 AM CDT Impressions 05/18/2023 11:30 AM CDT IMPRESSION: 1. Stable right lung pulmonary nodules measuring up to 5 mm, as detailed above. Continued attention on follow-up is recommended. 2. No acute abnormality is seen within the chest. 3. Age-indeterminate T10 vertebral body compression fracture. Closure point tenderness. Dedicated spine imaging could be considered for evaluation, as clinically directed. 4. Severe upper lobe predominant paraseptal and centrilobular emphysema. 5. Mild coronary calcific atherosclerosis. Ordered By: COOKIE ROY Interpreted By: Heather Torres MD, 05/18/2023 11:21 AM Narrative 05/18/2023 11:30 AM CDT PROCEDURE: CT CHEST W CON. HISTORY: Solitary pulmonary nodule. Follow up evaluation. TECHNIQUE: Non-ionic contrast enhanced helical thoracic CT was performed. A dose lowering technique was used for this procedure, which may include, but is not limited to, dose reduction technique, automated exposure control, the use of iterative reconstruction, and ALARA (As Low As Reasonably Achievable) / Image Gently techniques. COMPARISON: CT chest with contrast, 08/17/2021. FINDINGS: Support Devices: None. Heart/Pericardium/Great Vessels: Cardiac size is normal. There is mild calcific coronary artery atherosclerosis. There is no pericardial effusion. There is mild calcific thoracic aortic and branch vessel atherosclerosis. The main pulmonary artery is normal in diameter. The mid ascending thoracic aorta measures up to 3.3 cm Pleural Spaces: The pleural spaces are clear. Mediastinum/Breana: There is no mediastinal or hilar lymph node enlargement. Neck Base/Chest Wall/Diaphragm/Upper Abdomen: There is no supraclavicular or axillary lymph node enlargement. Limited imaging through the upper abdomen is otherwise within normal limits. Multilevel degenerative changes of the thoracic spine. There is age- indeterminate T10 vertebral body compression fracture without retropulsion. Mild bilateral gynecomastia. Lungs/Central Airways: The trachea central airways are clear normal in caliber. Mild bilateral bronchial wall thickening, which can be seen with small airway infection/inflammation or reactive airway disease.. There is severe upper lobe predominant paraseptal and centrilobular emphysema. No focal consolidations present. There is a 3 mm subpleural right lower lobe pulmonary nodule (series 3, image 77) is a 5 mm right middle lobe pulmonary nodule (series 3, image 77). Procedure Note Heather Torres MD - 05/18/2023 PROCEDURE: CT CHEST W CON. HISTORY: Solitary pulmonary nodule. Follow up evaluation. TECHNIQUE: Non-ionic contrast enhanced helical thoracic CT wasperformed. A dose lowering technique was used for this procedure, which may include,but is not limited to, dose reduction technique, automated exposurecontrol, the use of iterative reconstruction, and ALARA (As Low AsReasonably Achievable) / Image Gently techniques. COMPARISON: CT chest with contrast, 08/17/2021. FINDINGS: Support Devices: None. Heart/Pericardium/Great Vessels: Cardiac size is normal. There is mild calcific coronary artery atherosclerosis. There is no pericardial effusion. There is mild calcific thoracic aortic and branch vesselatherosclerosis. The main pulmonary artery is normal in diameter. The mid ascendingthoracic aorta measures up to 3.3 cm Pleural Spaces: The pleural spaces are clear. Mediastinum/Breana: There is no mediastinal or hilar lymph nodeenlargement. Neck Base/Chest Wall/Diaphragm/Upper Abdomen: There is no supraclavicularor axillary lymph node enlargement. Limited imaging through the upperabdomen is otherwise within normal limits. Multilevel degenerative changesof the thoracic spine. There is age-indeterminate T10 vertebral bodycompression fracture without retropulsion. Mild bilateral gynecomastia. Lungs/Central Airways: The trachea central airways are clear normal incaliber. Mild bilateral bronchial wall thickening, which can be seen withsmall airway infection/inflammation or reactive airway disease.. There issevere upper lobe predominant paraseptal and centrilobular emphysema. Nofocal consolidations present. There is a 3 mm subpleural right lower lobepulmonary nodule (series 3, image 77) is a 5 mm right middle lobepulmonary nodule (series 3, image 77). IMPRESSION: 1. Stable right lung pulmonary nodules measuring up to 5 mm, as detailedabove. Continued attention on follow-up is recommended. 2. No acute abnormality is seen within the chest. 3. Age-indeterminate T10 vertebral body compression fracture. Closurepoint tenderness. Dedicated spine imaging could be considered forevaluation, as clinically directed. 4. Severe upper lobe predominant paraseptal and centrilobularemphysema. 5. Mild coronary calcific atherosclerosis. Ordered By: COOKIE ROY Interpreted By: Heather Torres MD, 05/18/2023 11:21 AM Cookie Roy LITERARY AGENT CT Final Resul t from Last 3 Months or Most Recently Relevant to Health Maintenance Insurance [facility] Advance Directives * Full Code (Latest Code Status on File) Date Activated Date Inactivated Comments 04/28/2024 3:18 PM 05/03/2024 4:16 PM Care Teams Airport Electrician Relationship Specialty Start Date End Date Sharon Vasquez MD [address], [address] [place] [address] PCP - General CRITICAL CARE MEDICINE 10/18/24
--- OUTSIDE RECORDS SUMMARY | 2025-02-18 11:11 | XMS_ITS ---
Author Organization [facility] Address [address] [place] [address] Care Team Providers Care Vascular Ultrasound Technician Name Role Phone Ravinder Rodriguez Primary Care Provider [phone] Leah Gaona [phone] REASON FOR VISIT therapy Social History Sex Assigned At : Social History Observation Description Sex Assigned At Male Encounters Encounter Location Date Provider Diagnosis Person [facility] [place] [address] 02/08/2025 Leah Gaona Bipolar 1 disorder F31.9 and PTSD (post-traumatic stress disorder) F43.10 Assessments Encounter Date Diagnosis (ICD Code) Assessment Notes Treatment Notes Treatment Clinical Notes Section Notes 02/08/2025 Bipolar 1 disorder (ICD-10 - F31.9) 02/08/2025 PTSD (post-traumatic stress disorder) (ICD-10 - F43.10) Plan Of Treatment Next Appt Details Follow Up: 2 Weeks, Reason: therapy Provider Name:Leah mullen, 02/22/2025 01:00:00 PM, [address], [place], [address], Provider Name:Ravinder rob, 02/24/2025 12:20:00 PM, [address], [place], [address], Progress Notes * Dario BELLDOB:1964 (59 yo M)Acc No.[id number]:02/08/2025 Patient: Dario QUAN Provider: Neil Gaona LCSW :1965 A ge:59 Y S ex:Male Date:02/08/2025 Address:[address] [place], [place] [address] Pcp:Ravinder Rodriguez Subjective: * Chief Complaints: * [...] acknowledged areas that could help (engaging in activities in his community), barriers (some hesitation due to physical condition and feeling that no one would want to spend time with him), and supported middle ground areas. * Medical History: * Medications: Objective: * Examination: G eneral Examination: C t presented throught telehealth oriented, engaged in session. He reflected on factors in his relationships - old/previous pattern of his (he avoided spending time with others) with changes (improving his self-esteem in order to engage with others in his community). Ct acknowledged pieces/factors of healthy insight & changes he'd like to implement as he moves forward (plan: to work to increase his self esteem through positive self talk in order to begin to engage in his community with others ). Assessment: * Assessment: 1. B ipolar 1 disorder - F31.9 2 . P TSD (post-traumatic stress disorder) - F43.10 [place] V:Pt will continue medi cations as prescribed and will continue therapy to develop goals and manage symptoms. Plan: * Treatment: * Procedure Codes: 9 0834 TELE PSYTX PT&/FAMILY 45 MINUTES, Modifiers: AJ , 95 * Follow Up: 2 Weeks (Reason: therapy) * Care Plan Details* * Sign off status: Completed true * Provider: Neil Gaona LCSW Date: 0 02/08/2025 Generated for Lani booth/Bautista/Ravinder on: 0 02/18/2025 11:11 AM CDT History and Physical Notes * Examination Category Sub-Category Detail Notes Category Not es General Examination Ct prese nted throught telehealth oriented, engaged in session. He reflected on factors in his relationships - old/previous pattern of his (he avoided spending time with others) with changes (improving his self-esteem in order to engage with others in his community). Ct acknowledged pieces/factors of healthy insight & changes he'd like to implement as he moves forward (plan: to work to increase his self esteem through positive self talk in order to begin to engage in his community with others ).
== END 2025-02-18 10:37 | disposition home or self-care (01) ==
PROVIDERS: PCP Nurse Practitioner Family; Visit Provider Internal Medicine Critical Care Medicine
DX: R91.1 Solitary pulmonary nodule (principal); J43.9 Emphysema, unspecified
CPT/HCPCS: 71250

== ENCOUNTER 2025-09-20 16:52 | Outpatient (CLI) | payer OTHER, SELFPAY ==
--- NOTE | ~2025-09-20 | XR_ITS ---
EXAMINATION: XR chest 2V DATE: 09/20/2025 17:07 INDICATION: Shortness of breath TECHNIQUE: PA and lateral views of the chest were obtained. COMPARISON: Chest CT dated 02/18/2025 FINDINGS: Hyperexpansion lungs with prominent increased lucency and architectural distortion in the upper lung zones consistent with. Emphysema. No focal airspace opacities, pulmonary edema, pleural effusion or pneumothorax. Heart size is normal. Chronic T10 compression fracture. Plain screw fixation at the proximal left humerus. IMPRESSION: 1. Emphysema. Reviewed, dictated and finalized at location A. GUARD INSPECTOR IMPRESSION: 1. Emphysema.
--- OUTSIDE RECORDS SUMMARY | 2025-09-20 16:56 | XMS_ITS | Clinical Summary ---
Author Organization [facility] Address [facility] [place] [address] Care Team Providers Care Manager Spring Name Role Phone Sharon Vasquez MD Primary Care Provider [phone] Allergies No known active allergies Medications albuterol [...] Diagnosed Date Acute respiratory failure with hypoxia Hx of colonic polyps 12/24/2023 Resolved Problems Problem Noted Date Diagnosed Date Resolved Date Screening for colon cancer 12/24/2023 0 12/29/2023 Immunizations Immunization Administration Dates Next Due Influenza (Generic) 07/31/2023 Pneumococcal (Prevnar 20) 03/06/2022 Shingrix 05/20/2022,03/06/2022 Tdap (Adacel) 08/25/2016 Family History Medical History Relation Comments Heart Disease Father Hyperlipidemia Father Hypertension Father Alzheimer's disease Mother Relation Status Comments Father Mother Social History Tobacco Use Types Packs/Day Years Used Date Smoking Tobacco: Every Day Cigarettes 1 49.9 Started: 1975 Passive Smoke Exposure: Current Smokeless [...] from your doctor or pharmacy? Never 04/28/2024 [facility] Utilities Answer Date Recorded In the past 12 months has e [employer], gas, oil, or water [employer] threatened to shut off services in your [...] No 04/28/2024 Social Connection and Isolation Panel Answer Date Recorded In a typical week, how many times do you talk on the phone with family, friends, or neighbors? Never 04/28/2024 How often do you get together with friends or re latives? Never 04/28/2024 How often do you attend christian or mandaen serv ices? Never 04/28/2024 Do you belong to any clubs o r organizations such as christian groups, unions, fraternal or athletic groups, or [...] you are drinking? Patient does not drink Q3: How often do you have si x or more drinks on one occasion? Never 04/28/2024 Overall Financial Resource Strain (CARDIA) Answe r Date Recorded How hard is it for you to pa y for the very basics like food, housing, medical care, and heating? Somewhat hard 04/28/2024 PHQ-2 Answer Date Recorded Patient Health Questionnaire-2 Score 0 04/28/2024 [facility] - [...] any time in the past 12 m [facility], were you homeless or living in a jail (including now)? No 04/28/2024 Sex and Gender [...] need it on when I am lying around. Inhaled Oxygen Concentration - - Weight 60 kg (132 lb 4.4 oz) 05/03/2024 3:00 AM CDT Height 175.3 cm (5' 9) 04/28/2024 9:02 AM CDT Body Mass Index 19.53 04/28/2024 9:02 AM CDT Plan of Treatment Health Maintenance Due Date Last Done Comments Annual Physical 1966 Hepatitis C 1981 PHQ-2 (Physician Agdaagux) 11/10/2024 04/28/2024 COVID-19 Vaccine (2 6 season) 2025 10/08/2021, 02/12/2021, 01/22/2021 Influenza Adult (#1) 2025 07/31/2023 DTaP, Tdap and Td Vaccines ( 2 - Td or Tdap) 08/25/2026 08/25/2016 Colorectal Cancer Screening Colonoscopy (10 Years) 02/04/2034 02/05/2024, 02/05/2024 RSV Immunization or 60+ Years (1 - 1-dose 75+ series) 2038 Pneumococcal Vaccine: 50+ Years Completed 03/06/2022 Zoster Vaccines Completed 05/20/2022, 03/06/2022 Hepatitis A Vaccines Aged Out No long er eligible based on patient's age to complete this topic Meningococcal B Vaccine Aged Out No l [...] Comments COLONOSCOPY Routine 02/05/2024 11:26 AM CDT from Last 3 Months or Most Recently Relevant to Health Maintenance Insurance [facility] MEDICAID Advance Directives * Full Code (Latest Code Status on File) Date Activated Date Inactivated Comments 04/28/2024 3:18 PM 05/03/2024 4:16 PM Care Teams Manager Spring Relationship Specialty Start Date End Date Sharon Vasquez MD [address], [address] [place] [address] PCP - General CRITICAL CARE MEDICINE 10/18/24
--- OUTSIDE RECORDS SUMMARY | 2025-09-20 16:56 | XMS_ITS | Clinical Summary ---
Author Organization [facility] Address [address] [place] [address] Care Team Providers Care Arch Pad Cementer Name Role Phone Unknown, Provider Primary Care Provider Unavaila ble Source Comments [facility],non-owned Affiliates and Associated Physician Practices is amultiple site organization consisting of ambulatory clinics and hospital sitesin [place], [place], [place] and [place]. This disclosure is being madepursuant to the Care Everywhere program and may not contain all information available regarding this patient. Last updated 18.[facility] [employer] Social History Tobacco Use Types Packs/Day Years Used Date Smoking Tobacco: Never Assessed Sex and Gender Information Value Date Recorded Sex Assigned at Not on file Legal Sex Male 5:53 AM RUBBISH COLLECTOR Gender Identity Not on file Sexual Orientation [...] 72.1 kg (159 lb) 11/13/2017 8:43 AM RUBBISH COLLECTOR Height 170.2 cm (5' 7) 11/13/2017 8:43 AM RUBBISH COLLECTOR Body Mass Index 24.9 11/13/2017 8:43 AM RUBBISH COLLECTOR Plan of Treatment Health Maintenance Due Date Last Done Comments KRISSY (AGES 45-75) - COL ON CA SCREENING [...] 2013 ZOSTER VACCINE (1 of 2) 2013 DEPRESSION SCREENING 11/10/2024 COVID-19 VACCINE (1 - 2023-2 5 season) 2025 INFLUENZA VACCINE (#1) 2025 08/27/2016 Respiratory Syncytial Virus (RSV) Vaccine Pt: or [...] on patient's age to complete this topic Insurance [facility] [id number] Care Teams Arch Pad Cementer Relationship Specialty Start Date End Date Unknown, Provider PCP - General 04/27/18
== END 2025-09-20 16:53 | disposition home or self-care (01) ==
PROVIDERS: PCP Nurse Practitioner Family; Visit Provider Internal Medicine Critical Care Medicine
DX: R06.02 Shortness of breath (principal); J43.9 Emphysema, unspecified
CPT/HCPCS: 71046